=== PATIENT | female | born 1995 | race Caucasian/White ===

== ENCOUNTER 2023-11-03 08:23 | Emergency (ER) | payer SELFPAY ==
[~2023-11-03] VITALS: Ht 162.6 cm; Wt 74.6 kg
[2023-11-03 08:38] VITALS: BP 120/69; PULSE 117; RESP 20; TEMP 101.1; O2SAT 97
[2023-11-03] MEDS: ACETAMINOPHEN EXTRA STRENGTH 500 MG TAB PO ONE (08:52)
[2023-11-03] MEDS ORDERED: ACET-10509 PO (08:53)
[2023-11-03] MEDS ORDERED: IBUP-2218 PO (08:53)
[2023-11-03] MEDS ORDERED: BENZ200C4 PO (08:53)
[2023-11-03] MEDS ORDERED: BENZ-300 PO (08:53)
[2023-11-03] MEDS ORDERED: ONDA-188 SL (08:55)
[2023-11-03 09:34] LABS: FLU B ANTIGEN NEGATIVE (NEGATIVE)
[2023-11-03 09:36] LABS: FLU A ANTIGEN POSITIVE (NEGATIVE)
== END 2023-11-03 09:07 | disposition home or self-care (01) ==
LOC: MED 08:23
DX: B34.9 Viral infection, unspecified (principal); Z20.822 Contact with and (suspected) exposure to COVID-19; Z79.899 Other long term (current) drug therapy
CPT/HCPCS: 99283